=== PATIENT | male | born 1970 | race Caucasian/White ===

== ENCOUNTER 2019-08-01 10:28 | Outpatient (RCR) | payer OTHER ==
[~2019-08-01 10:28] MED LIST: CEPHALEXIN500 M1 PO; NO HOME MEDICATIONS; PREDNISONE 5MG5 MG PO; TOPROL XL 25MG25 MG PO
== END 2019-10-20 | disposition home or self-care (01) ==
LOC: WSOH
DX: S46.012A Strain of muscle(s) and tendon(s) of the rotator cuff of left shoulder, initial encounter (principal); Y99.0 Civilian activity done for income or pay; I10 Essential (primary) hypertension; M54.5 Low back pain; G89.29 Other chronic pain; Z98.890 Other specified postprocedural states

== ENCOUNTER → 2020-02-09 | Outpatient (RCR) | payer OTHER | LOC: WSOH | DX: S46.012D Strain of muscle(s) and tendon(s) of the rotator cuff of left shoulder, subsequent encounter (principal); I10 Essential (primary) hypertension; M54.5 Low back pain; G89.29 Other chronic pain ==

== ENCOUNTER 2020-04-22 10:50 | Outpatient (RCR) | payer OTHER | END 2020-07-21 | LOC: WSPT → WSOT 10:50 | DX: M25.512 Pain in left shoulder (principal) ==

== ENCOUNTER 2020-05-11 15:23 | Outpatient (RCR) | payer OTHER | END 2020-05-25 | disposition home or self-care (01) | LOC: WSOH | DX: S46.012D Strain of muscle(s) and tendon(s) of the rotator cuff of left shoulder, subsequent encounter (principal); I10 Essential (primary) hypertension; M54.9 Dorsalgia, unspecified; G89.29 Other chronic pain; Y99.0 Civilian activity done for income or pay | CPT/HCPCS: J1030 ==

== ENCOUNTER 2020-07-06 15:01 | Outpatient (RCR) | payer OTHER | END 2020-08-24 | disposition home or self-care (01) | LOC: WSOH | DX: S46.012D Strain of muscle(s) and tendon(s) of the rotator cuff of left shoulder, subsequent encounter (principal); I10 Essential (primary) hypertension; G89.29 Other chronic pain; M54.9 Dorsalgia, unspecified; Z98.890 Other specified postprocedural states ==